=== PATIENT | female | born 1980 | race Caucasian/White ===

== ENCOUNTER 2016-08-30 10:04 | Emergency (ER) | payer MEDICAID ==
[2016-08-30 10:16] VITALS: BP 113/71
--- NOTE | 2016-08-30 11:59 | ED Physician Documentation ---
PD HPI HEADACHE - Stated complaint Stated Complaint: HEAD PX, VISION CHANGE - Chief complaint Chief Complaint: Neuro - History obtained from History obtained from: Patient - History of Present Illness Timing - onset: How many weeks ago (3-4) Timing - onset during: Light activity (she has noted left periorbital area pain for 3-4 weeks, with some tenderness to palpation at medial orbital/eyelid area to palpation. She says it feels like someone had poked her or struck her there, with just some achiness, but has developed into a sharp pain with bending over and sitting up, some pain with eye movements. Denies URI symptoms. Denies injury to the area. No visual changes, but says the pain does occur now with eye movements.) Timing - duration: Weeks (3-4) Timing - details: Gradual onset, Waxing and waning Worst headache ever?: Worst headache ever? (not that severe of a pain, but has not had pains this persistent in the past.) Location: Front (feeling behind left eye.), Left Quality: Throbbing, Aching Associated symptoms: Eye pain. No: Fever, Stiff neck, Nausea, Weakness, Numbness, Vision changes Improved by: Rest Worsened by: Moving (bending over and back up again and with eye movement.) Contributing factors: No: Hypertension, Recent illness, Trauma Similar symptoms before: Has not had sx before Recently seen: Not recently seen Review of Systems Constitutional: denies: Fever, Chills Eyes: denies: Loss of vision, Decreased vision, Photophobia, Discharge Nose: denies: Rhinorrhea / runny nose, Congestion, Epistaxis Throat: denies: Sore throat Respiratory: denies: Cough GI: reports: Nausea. denies: Abdominal Pain, Vomiting, Diarrhea Skin: denies: Rash, Lesions, Abrasion (s), Laceration (s) Musculoskeletal: denies: Extremity pain, Joint pain Neurologic: denies: Focal weakness, Numbness, Near syncope Endocrine: denies: Weight loss Immunocompromised: denies: Immunocompromised PD PAST MEDICAL HISTORY - Past Medical History Cardiovascular: Arrhythmia Respiratory: None Neuro: None Endocrine/Autoimmune: None GI: GERD CLEANING MAID: None : None HEENT: None Psych: None Musculoskeletal: None Derm: None - Past Surgical History Past Surgical History: Yes General: Gastric surgery /CLEANING MAID: section - Present Medications Home Medications: Ambulatory Orders Medication Instructions Recorded Confirmed Amoxicillin 500 mg PO TID #20 capsule 08/30/16 Cetirizine [ZyrTEC] 10 mg PO DAILY #20 tablet 08/30/16 Dexamethasone [Decadron] 4 mg PO DAILY #5 tablet 08/30/16 Fluconazole [Diflucan] 150 mg PO ONCE #1 tablet 08/30/16 Hydrocodone/Acetaminophen [[place] 1 each PO Q6H PRN #20 tablet 08/30/16 5-325 Tablet] - Allergies Allergies/Adverse Reactions: Allergies Allergy/AdvReac Type Severity Reaction Status Date / Time No Known Drug Allergies Allergy Verified 05/07/13 23:33 - Living Situation Living Situation: reports: With spouse/s.o. Living Arrangement: reports: At home (just got in the past few months) - Social History Does the pt smoke?: No Smoking Status: Never smoker Does the pt drink ETOH?: No Does the pt have substance abuse?: No - Family History Family history: reports: Non contributory - Immunizations Immunizations are current?: Yes - POLST Patient has POLST: No POLST Status: Full Code PD ED PE NORMAL - Vitals Vital signs reviewed: Yes - General General: Alert and oriented X 3, No acute distress, Well developed/nourished - HEENT HEENT: Atraumatic, PERRL, EOMI (no diplopia. Fundal exam appears normal. There is some tenderness to palpation medial left upper eyelid area. No skin sores nor rash. ), Moist mucous membranes, Pharynx benign - Neck Neck: Supple, no meningeal sign, No adenopathy - Cardiac Cardiac: RRR, No murmur - Respiratory Respiratory: Clear bilaterally - Abdomen Abdomen: Soft, Non tender - Derm Derm: Normal color, Warm and dry, No rash - Extremities Extremities: No tenderness to palpate, Normal ROM s pain - Neuro Neuro: Alert and oriented X 3, agricultural loan officer 2-12 intact, No motor deficit, No sensory deficit, Normal speech, Other - Psych Psych: Normal mood, Normal affect Results - Vitals Vitals: Vital Signs - 24 hr 08/30/16 10:08 Temperature 36.5 C Heart Rate 88 Respiratory 17 Rate Blood Pressure 113/71 O2 Saturation 97 Oxygen O2 Source Room air - Labs Labs: Laboratory Tests 05/19/17 05/19/17 05/19/17 13:50 13:50 13:50 WBC 5.8 RBC 4.31 Hgb 12.9 Hct 37.4 MCV 86.7 MCH 30.0 MCHC 34.6 RDW 12.8 Plt Count 222 MPV 7.8 L Neut # 3.1 Lymph # 1.9 [place] # 0.6 Eos # 0.1 Baso # 0.0 Absolute Nucleated RBC 0.00 Nucleated RBCs 0.0 ESR 14 Sodium 138 Potassium 3.8 Chloride 105 Carbon Dioxide 27 Anion Gap 6.0 BUN 11 Creatinine 0.7 Estimated GFR (MDRD) 94 Glucose 109 H Calcium 8.9 Total Bilirubin 0.5 AST 15 ALT 15 Alkaline Phosphatase 38 L Total Protein 7.6 Albumin 4.4 Globulin 3.2 Albumin/Globulin Ratio 1.4 Lipase 33 TSH 08/30/16 13:50 WBC RBC Hgb Hct MCV MCH MCHC RDW Plt Count MPV Neut # Lymph # [place] # Eos # Baso # Absolute Nucleated RBC Nucleated RBCs ESR Sodium Potassium Chloride Carbon Dioxide Anion Gap BUN Creatinine Estimated GFR (MDRD) Glucose Calcium Total Bilirubin AST ALT Alkaline Phosphatase Total Protein Albumin Globulin Albumin/Globulin Ratio Lipase TSH 1.83 - Rads (name of study) orbital CT Radiology: Prelim report reviewed, Discussed with rads (left frontal sinusitis) brain CT Radiology: Prelim report reviewed, Discussed with rads (4.5 cm ovoiod mass left frontal area with some edema. No midline shift. Concern for neoplasms and suggests MRI. ) PD MEDICAL DECISION MAKING - ED course Complexity details: reviewed results (there is some sinusitis on CT, to be treated, and this may be a reasonable part of the left orbital pain and tenderness. However there is mass frontal lobe that does not look like fluid ( consider abscess but appears solid). MRI would be indicated. Our MRI is down for maintenance today. This is not necessarily emergent in the sense of needing transfer, but would be very urgent outpatient. I talked with Dr. Tariq, field operations farm manager for [facility] ([facility]), who will get outpatient MRI for patient today or tomorrow. ), considered differential, d/w patient (the CT findings and concerns. ) Departure - Departure Disposition: 01 Home, Self Care Clinical Impression: Left frontal lobe mass Sinusitis, acute Qualifiers: Sinusitis location: frontal Recurrence: non-recurrent Qualified Code(s): J01.10 - Acute frontal sinusitis, unspecified Headache Qualifiers: Headache type: other headache syndrome Qualified Code(s): G44.89 - Other headache syndrome Condition: Stable Record reviewed to determine appropriate education?: Yes Instructions: ED Sinusitis Abx Tx, ED Cephalgia Unspecified Follow-Up: Marcelino Coronado MD [Primary Care Provider] - Prescriptions: Amoxicillin 500 mg PO TID #20 capsule Dexamethasone [Decadron] 4 mg PO DAILY #5 tablet Fluconazole [Diflucan] 150 mg PO ONCE #1 tablet Hydrocodone/Acetaminophen [[place] 5-325 Tablet] 1 each PO Q6H PRN #20 tablet PRN Reason: Pain Cetirizine [ZyrTEC] 10 mg PO DAILY #20 tablet Comments: Dr. Carias, field operations farm manager in Dr. Coronado's office, said she will set you up for an outpatient MRI today or tomorrow in [place]. Medication as directed for sinus infection: Amoxicillin, Cetirizine. For the tumor appearing mass in the frontal area, take decadron daily for edema/swelling of it, Tylenol for pains and add hydrocodone as needed. Follow up for MRI/results and specialist referrals as indicated based on those results. Discharge Date/Time: 08/30/16 14:54
--- NOTE | 2016-08-30 13:28 | CT Preliminary Report ---
Exam: CT Orbits W/O IMPRESSION: 1. Unremarkable appearing orbits. 2. Left frontoethmoid sinus mucosal thickening consistent with sinusitis. Left frontal sinus obstruct ion. [facility] SITE ID: [id number]
--- NOTE | 2016-08-30 13:31 | CT Report ---
EXAM: CT MAXILLOFACIAL WITHOUT CONTRAST EXAM DATE: 08/30/2016 01:15 PM. CLINICAL HISTORY: Left frontal pain for few weeks. COMPARISONS: None. TECHNIQUE: Thin-section axial images were acquired of the face without contrast. Post-processing: Cor onal and sagittal reformats. Other: None. In accordance with CT protocol optimization, one or more of the following dose reduction techniques w ere utilized for this exam: automated exposure control, adjustment of mA and/or KV based on patient s ize, or use of iterative reconstructive technique. FINDINGS: Bones: No fracture or bone lesion. Temporomandibular Joints: The temporomandibular joints are symmetric and normally located. Sinuses: Moderate left frontal sinus mucosal thickening. Mild left anterior ethmoid mucosal thickenin g. The region of the left frontoethmoid recess appears to be obstructed by soft tissue density materi al. The remaining paranasal sinuses appear clear. Other: Unremarkable unenhanced soft tissue contours of the orbits. 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 IMPRESSION: 1. Unremarkable appearing orbits. 2. Left frontoethmoid sinus mucosal thickening consistent with sinusitis. Left frontal sinus obstruct ion. [facility] Referring Provider Line: [phone] SITE ID: [id number]
--- NOTE | 2016-08-30 13:33 | CT Preliminary Report ---
Exam: CT Head W/O IMPRESSION: Low-attenuation ovoid mass or area of edema left frontoparietal region 4.5 cm in maximum dimension moderately impressing upon the frontal horn of the left lateral ventricle, suspicious for n eoplasm. MRI of the brain without and with contrast recommended for further assessment. No other abnormalities noted. Results and recommendations discussed directly with attending emergency physician Alirio uribe radiologist at 1330 hrs. [facility] The above findings were discussed with provider Alirio Barreto M.D. by Dr. Júnior Villalobos at 13:32 hrs on 08/30/16. SITE ID: [id number]
--- NOTE | 2016-08-30 13:36 | CT Report ---
EXAM: CT HEAD WITHOUT CONTRAST EXAM DATE: 08/30/2016 01:15 PM. CLINICAL HISTORY: Left frontal pain for a few weeks in a 36-year-old female. COMPARISON: None. TECHNIQUE: Multiaxial CT images were obtained from the foramen magnum to the vertex. IV contrast: Non e. Reformats: Coronal. In accordance with CT protocol optimization, one or more of the following dose reduction techniques w ere utilized for this exam: automated exposure control, adjustment of mA and/or KV based on patient s ize, or use of iterative reconstructive technique. FINDINGS: Parenchyma: Ovoid area of low attenuation in the left frontoparietal region with mild mass effect kayla sures 3.4 cm in transverse diameter by 4.5 cm in AP diameter and 2.4 cm in craniocaudad dimension. No additional mass, cyst or area of edema. Extraaxial Spaces: Normal for age. No subdural or epidural collections identified. Ventricles: Moderate mass impression upon frontal horn left lateral ventricle by previously noted are a of mass or edema. Sinuses: Imaged paranasal sinuses, orbits, and mastoids show no significant abnormality. Bones: No evidence of fracture or calvarial defect. Other: None. IMPRESSION: Low-attenuation ovoid mass or area of edema left frontoparietal region 4.5 cm in maximum dimension moderately impressing upon the frontal horn of the left lateral ventricle, suspicious for n eoplasm. MRI of the brain without and with contrast recommended for further assessment. No other abnormalities noted. Results and recommendations discussed directly with attending emergency physician Alirio uribe radiologist at 1330 hrs. [facility] The above findings were discussed with provider Alirio Barreto M.D. by Dr. Júnior Villalobos at 13:32 hrs on 08/30/16. Referring Provider Line: [phone] SITE ID: [id number]
[2016-08-30 14:16] LABS: BASOPHILS % (AUTO) 0.8 %; EOSINOPHILS # (AUTO) 0.1 10^3/uL (0.0-0.7); EOSINOPHILS % (AUTO) 1.7 %; HCT - HEMATOCRIT 37.4 % (37.0-47.0); HGB - HEMOGLOBIN 12.9 g/dL (12.0-16.0); LYMPHOCYTES # (AUTO) 1.9 10^3/uL (1.5-3.5); LYMPHOCYTES % (AUTO) 33.4 %; MEAN CORPUSCULAR HGB CONC 34.6 g/dL (32.0-36.0); MEAN CORPUSCULAR VOLUME 86.7 fL (81.0-99.0); MEAN PLATELET VOLUME 7.8 fL (7.9-10.8); MONOCYTES # (AUTO) 0.6 10^3/uL (0.0-1.0); NEUTROPHILS # (AUTO) 3.1 10^3/uL (1.5-6.6); NEUTROPHILS % (AUTO) 54.1 %; RED BLOOD COUNT 4.31 10^6/uL (4.20-5.40); RED CELL DISTRIBUTION WIDTH 12.8 % (12.0-15.0); UNCORRECTED WHITE BLOOD COUNT 5.8 x10^3/uL; WHITE BLOOD COUNT 5.8 x10^3/uL (4.8-10.8)
[2016-08-30] MEDS ORDERED: DEXAMETHASONE 10 MG/ML VIAL PO STA (14:19)
[2016-08-30] MEDS ORDERED: AMOXICILLIN 250 MG CAPSULE PO STA (14:19)
[2016-08-30] MEDS ORDERED: ACETAMINOPHEN 325 MG TABLET PO STA (14:19)
[2016-08-30] MEDS ORDERED: ACETAMINOPHEN 325 MG TABLET PO ONE (14:24)
[2016-08-30] MEDS ORDERED: AMOXICILLIN 250 MG CAPSULE PO ONE (14:24)
[2016-08-30] MEDS ORDERED: DEXAMETHASONE 10 MG/ML VIAL ONE (14:24)
[2016-08-30 14:25] LABS: ALBUMIN/GLOBULIN RATIO 1.4 (1.0-2.2); BILIRUBIN,TOTAL 0.5 mg/dL (0.2-1.0); CALCIUM 8.9 mg/dL (8.5-10.3); CREATININE 0.7 mg/dL (0.4-1.0); POTASSIUM 3.8 mmol/L (3.5-5.0); TOTAL PROTEIN 7.6 g/dL (6.7-8.2)
== END 2016-08-30 14:54 | disposition home or self-care (01) ==
LOC: ED 10:04
DX: R22.0 Localized swelling, mass and lump, head (principal); J01.10 Acute frontal sinusitis, unspecified; R51 Headache; K21.9 Gastro-esophageal reflux disease without esophagitis
CPT/HCPCS: 36415; 70450; 70480; 80053; 83690; 84443; 85025; 85651; 99283; 99285; A9270

== ENCOUNTER 2016-10-12 16:18 | Emergency (ER) | payer MEDICAID ==
[2016-10-12 16:26] VITALS: BP 110/78
[2016-10-12] MEDS ORDERED: SULFAMETH/TRIMETH DS 800/160 MG TABLET PO STA (16:40)
--- NOTE | 2016-10-12 16:41 | ED Physician Documentation ---
PD HPI FEMALE - Stated complaint Stated Complaint: FEMALE - Chief complaint Chief Complaint: UTI - History obtained from History obtained from: Patient - History of Present Illness Timing - onset: Yesterday (2 days frequency/dysuria without hematuria or flank pain or fevers, c/w prior UTI. 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 : None HEENT: None Psych: None Musculoskeletal: None Derm: None - Past Surgical History Past Surgical History: Yes General: Gastric surgery /DRILL OPERATOR: section - Present Medications Home Medications: Ambulatory Orders Medication Instructions Recorded Confirmed Amoxicillin 500 mg PO TID #20 capsule 08/30/16 Cetirizine [ZyrTEC] 10 mg PO DAILY #20 tablet 08/30/16 Dexamethasone [Decadron] 4 mg PO DAILY #5 tablet 08/30/16 Fluconazole [Diflucan] 150 mg PO ONCE #1 tablet 08/30/16 Hydrocodone/Acetaminophen [[place] 1 each PO Q6H PRN #20 tablet 08/30/16 5-325 Tablet] Sulfamethoxazole/Trimethoprim 1 each PO BID 5 Days 10/12/16 [Sulfamethoxazole-Tmp Ds Tablet] - Allergies Allergies/Adverse Reactions: Allergies Allergy/AdvReac Type Severity Reaction Status Date / Time No Known Drug Allergies Allergy Verified 05/07/13 23:33 - Social History Does the pt smoke?: No Smoking Status: Never smoker Does the pt drink ETOH?: No Does the pt have substance abuse?: No - Immunizations Immunizations are current?: Yes - POLST Patient has POLST: No POLST Status: Full Code PD ED PE NORMAL - Vitals Vital signs reviewed: Yes - General General: Alert and oriented X 3, No acute distress - HEENT HEENT: Other (Recent L frontal crani incision C/D/I) - Abdomen Abdomen: Soft, Non tender - Back Back: No CVA TTP - Neuro Neuro: Alert and oriented X 3, Normal speech - Psych Psych: Normal mood, Normal affect Results - Vitals Vitals: Vital Signs - 24 hr 10/12/16 16:22 Temperature 36.6 C Heart Rate 76 Respiratory 20 Rate Blood Pressure 110/78 O2 Saturation 96 Oxygen O2 Source Room air PD MEDICAL DECISION MAKING - ED course ED course: Urine obviously orange- so UA will not be diagnostic. Will cx and tx. Departure - Departure Disposition: Home, Self Care Clinical Impression: Cystitis Condition: Good Record reviewed to determine appropriate education?: Yes Instructions: ED UTI Cystitis Female Prescriptions: Sulfamethoxazole/Trimethoprim [Sulfamethoxazole-Tmp Ds Tablet] 1 each PO BID 5 Days Comments: We will culture your urine, the results should be done in 48-72 hours. If an antibiotic change is necessary we will call you. Return if worse in the meantime, especially if you develop increasing flank pain, fevers, or cannot keep down the medication. Discharge Date/Time: 10/12/16 16:46
[2016-10-12] MEDS ORDERED: SULFAMETH/TRIMETH DS 800/160 MG TABLET PO ONE ×2 (16:43→16:44)
== END 2016-10-12 16:46 | disposition home or self-care (01) ==
LOC: ED 16:18
DX: N30.90 Cystitis, unspecified without hematuria (principal); C71.9 Malignant neoplasm of brain, unspecified
CPT/HCPCS: 87086; 99283; A9270; 81001; 81003; 81025

== ENCOUNTER 2017-09-16 21:41 | Emergency (ER) | payer MEDICAID ==
[2017-09-16 21:52] VITALS: BP 104/67
[2017-09-16 22:10] LABS: BILIRUBIN,URINE NEGATIVE (NEGATIVE); GLUCOSE, URINE (UA) NEGATIVE (NEGATIVE); KETONES,URINE (UA) NEGATIVE (NEGATIVE); LEUKOCYTE ESTERASE, URINE NEGATIVE (NEGATIVE); NITRITE,URINE NEGATIVE (NEGATIVE); OCCULT BLOOD,URINE LARGE (NEGATIVE); PROTEIN,URINE NEGATIVE (NEGATIVE); UROBILINOGEN,URINE 0.2 (NORMAL) E.U./dL (NORMAL)
[2017-09-16 22:15] LABS: CLARITY,URINE CLEAR (CLEAR); HCG UR QUAL NEGATIVE
[2017-09-16 22:21] LABS: BACTERIA,URINE Few /HPF (None Seen); SQUAMOUS EPITHELIAL CELL,UR MANY Squamous (<= Few)
== END 2017-09-16 22:55 | disposition left against medical advice (07) ==
LOC: ED 21:41
DX: Z53.20 Procedure and treatment not carried out because of patient's decision for unspecified reasons (principal)
CPT/HCPCS: 81001; 81003; 81025; 87086

== ENCOUNTER 2020-12-22 08:24 | Emergency (ER) | payer OTHER, MEDICAID ==
[2020-12-22 09:09] VITALS: BP 103/74
[2020-12-22 09:24] LABS: BILIRUBIN,URINE NEGATIVE (NEGATIVE); GLUCOSE, URINE (UA) NEGATIVE (NEGATIVE); KETONES,URINE (UA) NEGATIVE (NEGATIVE); LEUKOCYTE ESTERASE, URINE SMALL (NEGATIVE); NITRITE,URINE NEGATIVE (NEGATIVE); OCCULT BLOOD,URINE MODERATE (NEGATIVE); PROTEIN,URINE NEGATIVE (NEGATIVE); UROBILINOGEN,URINE 0.2 (NORMAL) E.U./dL (NORMAL)
[2020-12-22 09:36] LABS: CLARITY,URINE CLEAR (CLEAR)
[2020-12-22 09:37] LABS: BACTERIA,URINE Rare /HPF (None Seen); RBC,URINE 0-5 /HPF (0-5); SQUAMOUS EPITHELIAL CELL,UR FEW Squamous (<= Few)
--- NOTE | 2020-12-22 09:51 | ED Physician Documentation ---
PD HPI FEMALE - Stated complaint Stated Complaint: FEMALE - Chief complaint Chief Complaint: UTI - History obtained from History obtained from: Patient - History of Present Illness Timing - onset: How many days ago (4) Timing - duration: Days (4) Timing - details: Gradual onset, Still present Associated symptoms: Back pain, Dysuria, Urinary frequency Similar symptoms before: Diagnosis (UTI and pyelo) Recently seen: Not recently seen - Additional information Additional information: Previously well 40-year-old female with history of brain tumor has developed some urinary urgency frequency and dysuria she is taken some ibuprofen cranberry as well as extra fluid and despite that symptoms have marched on. She has now developed some pain in her left flank and some mild nausea. She has not had a fever she has not had vomiting or diarrhea. Review of Systems Constitutional: denies: Fever Eyes: denies: Decreased vision Ears: denies: Ear pain Nose: denies: Congestion Throat: denies: Sore throat Cardiac: denies: Chest pain / pressure Respiratory: denies: Cough GI: reports: Nausea. denies: Abdominal Pain, Vomiting, Constipation, Diarrhea : reports: Dysuria, Frequency Skin: denies: Rash Musculoskeletal: reports: Back pain. 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: None : None HEENT: None Psych: None Musculoskeletal: None Derm: None - Past Surgical History Past Surgical History: Yes General: Gastric surgery /COOKER CLEANER: section - Present Medications Home Medications: Ambulatory Orders Medication Instructions Recorded Confirmed Amoxicillin 500 mg PO TID #20 capsule 08/30/16 Cetirizine [ZyrTEC] 10 mg PO DAILY #20 tablet 08/30/16 Fluconazole [Diflucan] 150 mg PO ONCE #1 tablet 08/30/16 Hydrocodone/Acetaminophen [[place] 1 each PO Q6H PRN #20 tablet 08/30/16 5-325 Tablet] dexAMETHasone [Decadron] 4 mg PO DAILY #5 tablet 08/30/16 Sulfamethoxazole/Trimethoprim 1 each PO BID 5 Days tablet 10/12/16 [Sulfamethoxazole-Tmp Ds Tablet] Amox/Clav 875/125 [Augmentin] 1 each PO Q12H #14 tablet 12/22/20 Fluconazole [Diflucan] 1 tablet PO ONCE #2 tablet 12/22/20 - Allergies Allergies/Adverse Reactions: Allergies Allergy/AdvReac Type Severity Reaction Status Date / Time No Known Drug Allergies Allergy Verified 12/22/20 09:09 - Social History Does the pt smoke?: No Smoking Status: Never smoker Does the pt drink ETOH?: No Does the pt have substance abuse?: No - Immunizations Immunizations are current?: Yes - POLST Patient has POLST: No POLST Status: Full Code PD ED PE NORMAL - Vitals Vital signs reviewed: Yes (Normal) - General General: Alert and oriented X 3, No acute distress, Well developed/nourished, Other (Bags under the eyes are showing today.) - HEENT HEENT: Atraumatic, PERRL, EOMI - Cardiac Cardiac: RRR, No murmur - Respiratory Respiratory: No respiratory distress, Clear bilaterally - Abdomen Abdomen: Normal bowel sounds, Soft, Non distended, No organomegaly, Other (Tenderness to bimanual palpation of the left kidney.) - Back Back: No spinal TTP, Other (Left CVA tenderness is mild.) - Derm Derm: Normal color, Warm and dry, No rash - Extremities Extremities: No deformity, No edema - Neuro Neuro: Alert and oriented X 3, millinery blocker 2-12 intact, No motor deficit, No sensory deficit, Normal speech Eye Opening: Spontaneous Motor: Obeys Commands Verbal: Oriented GCS Score: 15 - Psych Psych: Normal mood, Normal affect Results - Vitals Vitals: Vital Signs - 24 hr 12/22/20 09:07 Temperature 36.2 C L Heart Rate 80 Respiratory 16 Rate Blood Pressure 103/74 O2 Saturation 100 Oxygen O2 Source Room air - Labs Labs: Laboratory Tests 12/22/20 09:19 Urine Color YELLOW Urine Clarity CLEAR Urine pH 7.0 Ur Specific [place] <=1.005 Urine Protein NEGATIVE Urine Glucose (UA) NEGATIVE Urine Ketones NEGATIVE Urine Occult Blood MODERATE H Urine Nitrite NEGATIVE Urine Bilirubin NEGATIVE Urine Urobilinogen 0.2 (NORMAL) Ur Leukocyte Esterase SMALL H Urine RBC 0-5 Urine WBC 11-25 H Ur Squamous Epith Cells FEW Squamous Urine Bacteria Rare Ur Microscopic Review INDICATED Urine Culture Comments INDICATED PD MEDICAL DECISION MAKING - ED course Complexity details: considered differential, d/w patient ED course: 40-year-old female with a prior history of urinary tract infection has developed urinary tract infection with left flank pain. She is nauseous but not febrile and she is not vomiting. She is administered Rocephin IM and we will place her on a course of Augmentin. Departure - Departure Disposition: 01 Home, Self Care Clinical Impression: Pyelonephritis Condition: Stable Instructions: ED Kidney Infec Female Follow-Up: Marcelino Coronado MD [Primary Care Provider] - Prescriptions: Amox/Clav 875/125 [Augmentin] 1 each PO Q12H #14 tablet Fluconazole [Diflucan] 1 tablet PO ONCE #2 tablet
[2020-12-22] MEDS ORDERED: cefTRIAXone 1 GM VIAL IM STA (09:56)
[2020-12-22] MEDS ORDERED: LIDOCAINE 1% 2 ML VIAL MC ONE (09:56)
== END 2020-12-22 10:43 | disposition home or self-care (01) ==
LOC: ED 08:24
DX: N12 Tubulo-interstitial nephritis, not specified as acute or chronic (principal)
CPT/HCPCS: 81001; 81003; 87086; 96372; 99283; 99284

== ENCOUNTER 2022-09-11 08:00 | Outpatient (CLI) | payer OTHER, MEDICAID | END 2022-09-11 23:59 | disposition home or self-care (01) | LOC: LAB 08:00 | PROVIDERS: ATTEND Family Medicine | DX: N39.0 Urinary tract infection, site not specified (principal) | CPT/HCPCS: 87086; 87181 ==